=== PATIENT | female | born 1950 | race Caucasian/White ===

== ENCOUNTER → 2016-07-14 | Outpatient (CLI) | payer BC | LOC: RAD 08:54 | PROVIDERS: ATTEND Obstetrics & Gynecology | DX: Z12.31 Encounter for screening mammogram for malignant neoplasm of breast (principal) ==

== ENCOUNTER 2016-08-14 08:44 | Day surgery (SDC) | payer BC ==
[~2016-08-14] VITALS: Ht 167.6 cm; Wt 85.0 kg
[~2016-08-14 08:44] MED LIST: ACETAMINOPHEN 500 MG TAB (TYLENOL) PO SCH; BUPIVACAINE/EPINEPHRINE 0.25%-1:200,000 (MARCAINE) 30 ML VIAL INJ SCH; LACTATED RINGERS 1,000 ML IV SCH; LIDOCAINE/EPINEPHRINE 1% 1:100,000 (XYLOCAINE) 30 ML VIAL INJ SCH; SODIUM CHLORIDE FLUSH 3 ML SYR IV PRN; oxyCODONE IMMEDIATE RELEASE 5 MG (OXYIR) TAB PO SCH
[2016-08-14 08:51] VITALS: BP 116/82
[2016-08-14] MEDS ORDERED: BUPIVACAINE/EPINEPHRINE 0.25%-1:200,000 (MARCAINE) 30 ML VIAL INJ ONE (09:28)
[2016-08-14] MEDS ORDERED: LIDOCAINE/EPINEPHRINE 1% 1:100,000 (XYLOCAINE) 30 ML VIAL INJ ONE (09:28)
[2016-08-14] MEDS ORDERED: MIDAZOLAM 2 MG/2 ML (VERSED) VIAL ONE (09:31)
[2016-08-14] MEDS ORDERED: PROPOFOL 20 ML IV ONE (09:31)
[2016-08-14] MEDS ORDERED: ALFENTANIL 500 MCG/ML (ALFENTA) 5 ML AMP IV ONE (09:31)
[2016-08-14] MEDS ORDERED: LIDOCAINE JELLY 2% (XYLOCAINE) 30 ML TUBE TOP ONE (10:08)
[2016-08-14] MEDS ORDERED: ONDANSETRON 2 MG/ML (Z0FRAN) 2 ML VIAL ONE (11:07)
[2016-08-14] MEDS ORDERED: diphenhydrAMINE 50 MG/ML INJ (BENADRYL) ONE (11:07)
[2016-08-14 11:51] VITALS: BP 124/67
[2016-08-14 12:25] VITALS: BP 118/73
[2016-08-14] MEDS ORDERED: ONDANSETRON 2 MG/ML (Z0FRAN) 2 ML VIAL IV PRN (12:39)
== END 2016-08-14 12:35 | disposition home or self-care (01) ==
LOC: ASC 08:44
PROVIDERS: ATTEND Surgery
DX: K64.8 Other hemorrhoids (principal); K62.1 Rectal polyp; I10 Essential (primary) hypertension; J45.909 Unspecified asthma, uncomplicated; E78.5 Hyperlipidemia, unspecified; Z86.010 Personal history of colon polyps
CPT/HCPCS: 46255; J1200; J2250; J2405; J7120